=== PATIENT | male | born 1950 | race Two or more races ===

== ENCOUNTER 2021-07-12 05:50 | Day surgery (SDC) | payer OTHER | END 2021-07-12 14:05 | disposition home or self-care (01) | LOC: AMB-ENDOS 05:50 | PROVIDERS: ATTEND Surgery | DX: D12.7 Benign neoplasm of rectosigmoid junction (principal); D12.3 Benign neoplasm of transverse colon; I10 Essential (primary) hypertension ==

== ENCOUNTER 2021-08-08 14:32 | Inpatient (IN) | payer OTHER ==
[~2021-08-08] VITALS: Ht 175.3 cm; Wt 100.7 kg
[~2021-08-08 14:32] MED LIST: GABAPENTIN100 M2 PO; HYZAAR 100-251 EACH PO; MOTRIN IB200 MG PO; PROTONIX20 MG PO; ZYRTEC10 M3 PO
[2021-08-13] MEDS ORDERED: MONTELUKAST SOD10 MG (08:02)
[2021-08-19] MEDS ORDERED: NEURONTIN300 MG PO (07:52)
[2021-08-19] MEDS ORDERED: TAMS0.4C PO (07:52)
== END 2021-08-19 14:28 | disposition home or self-care (01) | DRG 331 ==
LOC: SURH 08-09 11:15 → O/R 08-13 06:46 → SURH 08-13 06:46
PROVIDERS: ADMIT Surgery; ATTEND Surgery
PROC: 07BC4ZZ Excision of Pelvis Lymphatic, Percutaneous Endoscopic Approach (ICD-10-PCS; 2021-08-13)
PROC: 0DTP4ZZ Resection of Rectum, Percutaneous Endoscopic Approach (ICD-10-PCS; 2021-08-13)
PROC: 0D1B4Z4 Bypass Ileum to Cutaneous, Percutaneous Endoscopic Approach (ICD-10-PCS; 2021-08-13)
PROC: 0DTN4ZZ Resection of Sigmoid Colon, Percutaneous Endoscopic Approach (ICD-10-PCS; principal; 2021-08-13 13:00)
PROC: B54CZZZ Ultrasonography of Left Lower Extremity Veins (ICD-10-PCS; 2021-08-15)
DX: D12.7 Benign neoplasm of rectosigmoid junction (principal); D12.3 Benign neoplasm of transverse colon; R59.0 Localized enlarged lymph nodes; R33.8 Other retention of urine; I11.9 Hypertensive heart disease without heart failure; R06.81 Apnea, not elsewhere classified; M10.9 Gout, unspecified

== ENCOUNTER 2021-08-26 21:26 | Emergency (ER) | payer OTHER ==
[~2021-08-26] VITALS: Ht 175.3 cm; Wt 99.8 kg
[~2021-08-26 21:26] MED LIST changes: +MONTELUKAST SOD10 MG; +NEURONTIN300 MG PO; +TAMS0.4C PO
[2021-08-26] MEDS ORDERED: LOSARTAN-HCTZ1 EAC1 PO (21:42)
[2021-08-26] MEDS ORDERED: PANTOPRAZOLE SO40 MG PO (21:42)
[2021-08-26] MEDS ORDERED: TAMSULOSIN HCL0.4 MG PO (21:42)
[2021-08-26] MEDS ORDERED: GABAPENTIN300 M2 PO (21:42)
[2021-08-26] MEDS ORDERED: CIPRO500 MG PO (23:04)
== END 2021-08-26 23:43 | disposition home or self-care (01) ==
LOC: ER 21:26
DX: R33.9 Retention of urine, unspecified (principal); N39.0 Urinary tract infection, site not specified; B96.20 Unspecified Escherichia coli [E. coli] as the cause of diseases classified elsewhere

== ENCOUNTER 2021-08-28 16:55 | Inpatient (IN) | payer OTHER ==
[~2021-08-28] VITALS: Ht 152.4 cm; Wt 99.8 kg
[~2021-08-28 16:55] MED LIST changes: +CIPRO500 MG PO; +GABAPENTIN300 M2 PO; +LOSARTAN-HCTZ1 EAC1 PO; +PANTOPRAZOLE SO40 MG PO; +TAMSULOSIN HCL0.4 MG PO
[2021-08-28] MEDS ORDERED: ZYLOPRIM100 M1 PO (17:23)
[2021-08-28] MEDS ORDERED: INDOMETHACIN50 MG PO (17:23)
--- NOTE | 2021-08-28 17:26 | NUR ---
SE RECIBE PACIENTE ALERTA Y ORIENTADO X3 ACOMPANADO DE BARKER ESPOSA, QUIEN REFIERE QUE DESDE EL PELON DE YVONNE PTE SE SIENTE CON MALESTAR GENERAL Y CON FIEBRE. PTE DEL DR.NICOLAS UNGER, FUE OPERADO EL PELON 3 DE MCBRIDE, LE REALIZARON OLAF ILEOSTOMIA. PTE VISITO A EL PELON DE HOY Y ESTEPHANIE LO ENVIO PARA JEFFREY DE EMERGENCIAS. SE MONITOREAN S/V Y SE UBICA EN OBSERVACION. PTE PRESENTA FIEBRE DE 103.6, SE LE ADMINISTRAN DOS TYLENOL GEL CAPS.
--- NOTE | 2021-08-28 18:29 | NUR ---
PACIENTE EVALUADO POR EL DR. REBOLLEDO QUIEN ORDENA [place] MEDICO. RN RANDALL ORIENTA A PTE Y FAMILIAR SOBRE TX REFIEREN ENETENDER Y EJECUTA ORDENES MEDICAS.
--- NOTE | 2021-08-28 18:45 | NUR ---
SE REALIZA CAMBIO DE BOLSA COLECTORA, BAJO MEDIDAS ASEPTICAS Y ESTERILES POR RN THOMPSON. SE COLECTA MUESTRA DE LABORATORIOS, BAJO MEDIDAS ASEPTICAS. SE DORIAN COMODIDAD, SE OBSERVA POR CAMBIOS.
[2021-09-04] MEDS ORDERED: levaquin PO (13:55)
[2021-09-04] MEDS ORDERED: ZYLOPRIM100 M1 PO (13:55)
[2021-09-04] MEDS ORDERED: PANTOPRAZOLE SO40 MG PO (13:55)
[2021-09-04] MEDS ORDERED: INTEGRA F CAPS1 EACH PO (13:55)
[2021-09-04] MEDS ORDERED: MITIGARE0.6 MG PO (13:55)
[2021-09-04] MEDS ORDERED: ZYRTEC10 M3 PO (13:55)
[2021-09-04] MEDS ORDERED: INDOMETHACIN50 MG PO (13:55)
[2021-09-04] MEDS ORDERED: LOSARTAN POTAS100 MG PO (13:55)
[2021-09-04] MEDS ORDERED: TAMSULOSIN HCL0.4 MG PO (13:55)
[2021-09-04] MEDS ORDERED: ABANEU-SL TABL1 EACH SL (14:02)
== END 2021-09-05 00:35 | disposition home or self-care (01) | DRG 690 ==
LOC: ER 16:55 → SURG 08-29 00:10 → SURH 08-30 13:38
PROVIDERS: ADMIT Surgery; ATTEND Surgery
DX: N39.0 Urinary tract infection, site not specified (principal); Z16.12 Extended spectrum beta lactamase (ESBL) resistance; B96.29 Other Escherichia coli [E. coli] as the cause of diseases classified elsewhere; R33.8 Other retention of urine; M79.672 Pain in left foot; N41.8 Other inflammatory diseases of prostate; M10.9 Gout, unspecified; Z20.822 Contact with and (suspected) exposure to COVID-19; I10 Essential (primary) hypertension; N40.0 Benign prostatic hyperplasia without lower urinary tract symptoms

== ENCOUNTER 2021-11-18 14:09 | Emergency (ER) | payer OTHER ==
[~2021-11-18] VITALS: Ht 175.3 cm; Wt 97.5 kg
[~2021-11-18 14:09] MED LIST changes: +ABANEU-SL TABL1 EACH SL; +INDOMETHACIN50 MG PO; +INTEGRA F CAPS1 EACH PO; +LOSARTAN POTAS100 MG PO; +MITIGARE0.6 MG PO; +ZYLOPRIM100 M1 PO; +levaquin PO
[2021-11-18] MEDS ORDERED: MACRODANTIN100 M1 PO (19:11)
== END 2021-11-18 21:03 | disposition home or self-care (01) ==
LOC: ER 14:09
DX: N39.0 Urinary tract infection, site not specified (principal); I10 Essential (primary) hypertension; Z85.9 Personal history of malignant neoplasm, unspecified

== ENCOUNTER 2022-01-24 05:36 | Day surgery (SDC) | payer OTHER ==
[~2022-01-24 05:36] MED LIST changes: +MACRODANTIN100 M1 PO
== END 2022-01-24 11:10 | disposition home or self-care (01) ==
LOC: AMB-ENDOS 05:36 → CIR.AMB 14:00 → AMB-ENDOS 14:00
PROVIDERS: ATTEND Surgery
DX: K63.5 Polyp of colon (principal); Z20.822 Contact with and (suspected) exposure to COVID-19; K57.30 Diverticulosis of large intestine without perforation or abscess without bleeding; Z86.010 Personal history of colon polyps

== ENCOUNTER 2022-02-05 10:30 | Outpatient (CLI) | payer OTHER | END 2022-02-05 14:13 | disposition home or self-care (01) | LOC: LAB 10:30 | PROVIDERS: ATTEND Urology | DX: R97.20 Elevated prostate specific antigen [PSA] (principal) ==

== ENCOUNTER 2022-02-28 07:02 | Outpatient (CLI) | payer OTHER | END 2022-02-28 07:05 | disposition home or self-care (01) | LOC: SONOGRAMA 07:02 | PROVIDERS: ATTEND Urology | DX: C61 Malignant neoplasm of prostate (principal); N41.1 Chronic prostatitis; N40.1 Benign prostatic hyperplasia with lower urinary tract symptoms ==

== ENCOUNTER 2022-03-18 12:30 | Inpatient (IN) | payer OTHER ==
[~2022-03-18] VITALS: Ht 175.3 cm; Wt 98.9 kg
[2022-03-21] MEDS ORDERED: LOSARTAN-HCTZ1 EAC1 (07:57)
[2022-03-24] MEDS ORDERED: ULTRACET PO (12:55)
== END 2022-03-24 14:27 | disposition home or self-care (01) | DRG 348 ==
LOC: O/R 03-21 06:00 → SURH 03-21 06:00 → SURG 03-21 07:00 → SURH 03-21 11:29 → SURG 03-21 12:30 → SURH 03-24 14:27
PROVIDERS: ADMIT Surgery; ATTEND Surgery
PROC: 4A12X4Z Monitoring of Cardiac Electrical Activity, External Approach (ICD-10-PCS; 2022-03-21)
PROC: 0DBB4ZZ Excision of Ileum, Percutaneous Endoscopic Approach (ICD-10-PCS; principal; 2022-03-21 07:00)
DX: Z43.2 Encounter for attention to ileostomy (principal); C20 Malignant neoplasm of rectum; R59.0 Localized enlarged lymph nodes; D12.3 Benign neoplasm of transverse colon; I11.9 Hypertensive heart disease without heart failure; N40.0 Benign prostatic hyperplasia without lower urinary tract symptoms; Z20.822 Contact with and (suspected) exposure to COVID-19

== ENCOUNTER 2022-09-24 14:58 | Outpatient (CLI) | payer OTHER ==
[~2022-09-24 14:58] MED LIST changes: +LOSARTAN-HCTZ1 EAC1; +ULTRACET PO
== END 2022-09-24 15:03 | disposition home or self-care (01) ==
LOC: LAB 14:58
PROVIDERS: ATTEND Urology
DX: R97.20 Elevated prostate specific antigen [PSA] (principal)

== ENCOUNTER 2022-11-14 08:31 | Outpatient (CLI) | payer OTHER | END 2022-11-14 08:34 | disposition home or self-care (01) | LOC: LAB 08:31 | PROVIDERS: ATTEND Urology | DX: Z20.822 Contact with and (suspected) exposure to COVID-19 (principal) ==

== ENCOUNTER 2022-11-19 07:09 | Outpatient (CLI) | payer OTHER | END 2022-11-19 07:16 | disposition home or self-care (01) | LOC: SONOGRAMA 07:09 | PROVIDERS: ATTEND Urology | DX: C61 Malignant neoplasm of prostate (principal); D29.1 Benign neoplasm of prostate; N41.1 Chronic prostatitis ==

== ENCOUNTER → 2022-12-23 | Day surgery (SDC) | payer OTHER | END | disposition home or self-care (01) | LOC: ADM 12-19 13:00 → AMB-ENDOS 08:34 | PROVIDERS: ATTEND Surgery | DX: D12.3 Benign neoplasm of transverse colon (principal); K57.30 Diverticulosis of large intestine without perforation or abscess without bleeding; D37.5 Neoplasm of uncertain behavior of rectum; Z20.822 Contact with and (suspected) exposure to COVID-19; R59.0 Localized enlarged lymph nodes ==

== ENCOUNTER 2023-03-13 06:00 | Day surgery (SDC) | payer OTHER ==
[2023-03-10 12:04] LABS: HEMATOCRIT 44.1 % (39.0-48.0); HEMOGLOBIN 14.9 g/dL (13-16.00); MEAN CELL VOLUME 91.3 fL (80.0-100.00); MEAN CORPUSCULAR HEMOGLOBIN 30.9 pg (27.00-32.0); MEAN CORPUSCULAR HGB CONC 33.8 g/dl (32.0-36.0); PLATELET COUNT 193 K/uL (150-450); RED BLOOD COUNT 4.83 M/uL (4.00-6.00); RED CELL DISTRIBUTION WIDTH 14.1 % (11.5-14.5)
[2023-03-10 12:21] LABS: URINE APPEARANCE Clear; URINE BILIRRUBIN Negative (NEGATIVE); URINE BLOOD Negative; URINE COLOR Yellow; URINE GLUCOSE Negative (NEGATIVE); URINE LEUKOCYTE Negative; URINE NITRATE Negative; URINE PROTEIN Negative (NEGATIVE)
[2023-03-10 12:26] LABS: URINE RBC 8.3 uL (0.0-20.8); URINE WBC 1.8 uL (0.0-23.2)
[2023-03-10 12:29] LABS: URINE BACTERIA 2.5 uL (0.0-1933)
[2023-03-10 12:29] LABS: CALCIUM 9.5 mg/dL (8.5-10.1); CREATININE SERUM 0.87 mg/dL (0.70-1.30); GFR 85.78; POTASSIUM 4.76 mEq/L (3.5-5.1)
[2023-03-10 12:36] LABS: INR 1.02; PARTIAL THROMBOPLASTIN TIME 27.2 SECONDS (22.0-34.0)
[2023-03-10 12:37] LABS: PROTHROMBIN TIME 10.7 SECONDS (9.0-11.5)
== END 2023-03-13 13:55 | disposition home or self-care (01) ==
LOC: CIR.AMB 06:00
PROVIDERS: ATTEND Urology
DX: N40.1 Benign prostatic hyperplasia with lower urinary tract symptoms (principal); R33.9 Retention of urine, unspecified; Z20.822 Contact with and (suspected) exposure to COVID-19